=== PATIENT | male | born 1965 | race Caucasian/White ===

== ENCOUNTER → 2018-10-02 10:21 | Outpatient (CLI) | payer MEDICAID, SELFPAY ==
--- NOTE | 2018-10-02 10:26 | XR_ITS ---
EXAM: XR lumbar spine 2-3V HISTORY: ITS.REASON: pain ORDERING PHYSICIAN: Glendy Flynn PATIENT AGE: 53 years COMPARISON: None FINDINGS: Mild dextroscoliosis. There is mild multilevel degenerative disc disease from L1 to S1 with some sparing of the L2-L3 disc space. No fracture or dislocation. No lytic or blastic change. Mild facet arthritic changes with hypertrophy at L5-S1. IMPRESSION: Lumbar spondylosis with degenerative disc disease and facet arthritic change
--- NOTE | 2018-10-02 10:26 | XR_ITS ---
XR hip RT 2-3V w/pelvis HISTORY: ] ITS.REASON: pain ORDERING PHYSICIAN: Glendy Flynn PATIENT AGE: 53 years COMPARISON: None FINDINGS: No fracture or dislocation is evident. There are mild osteoarthritic changes of the right hip with osteophyte formation along the inferior aspect of the acetabulum. IMPRESSION: Mild osteoarthritis of the right hip
== END ==
PROVIDERS: PCP Emergency Medicine; Visit Provider Nurse Practitioner Family
DX: M25.551 Pain in right hip (principal); M54.9 Dorsalgia, unspecified
CPT/HCPCS: 72100; 73502

== ENCOUNTER 2024-08-04 03:00 | Inpatient (IN) | payer OTHER, SELFPAY ==
[2024-08-04] VITALS (27 sets, daily range): BP systolic 100–178; BP diastolic 62–103; PULSE 66–105; RESP 12–20; TEMP 36.6–37.1; O2SAT 96–100; BMI 26.6
--- NOTE | 2024-08-04 03:07 | ECG_ITS ---
APPROVED REPORT Exam: Resting ECG HR:86 bpm ECG Measurements Heart Rate 86 AXES NV 154 P 57 QRSd 94 QRS 44 QT 353 T 69 QTc 396 Conclusion SINUS RHYTHM MARKED ST ELEVATION, CONSIDER INFERIOR INJURY [MARKED ST ELEVATION W/O NORMALLY INFLECTED T-WAVE IN II/aVF] ACUTE IA Electronically signed by : DANIEL VELOZ, 08/04/2024 07:28:09
--- NOTE | 2024-08-04 03:11 | PC.NURSE ---
Stemi alert called
--- NOTE | 2024-08-04 03:16 | XR_ITS ---
PROCEDURE INFORMATION: Exam: XR Chest Exam date and time: 08/04/2024 3:21 AM Age: 59 years old Clinical indication: Pain; Chest pressure; Additional info: Cp TECHNIQUE: Imaging protocol: Radiologic exam of the chest. Views: 1 view. COMPARISON: No relevant prior studies available. FINDINGS: Lungs: Unremarkable. No consolidation. There is no focal mass. Pleural spaces: Unremarkable. No pleural effusion. No pneumothorax. Heart/Mediastinum: Unremarkable. No cardiomegaly. Bones/joints: Unremarkable. There is no acute fracture present. IMPRESSION: No evidence for acute cardiac or pulmonary process.
[2024-08-04] MEDS: TICAGRELOR 90MG TABLET 180 MG PO (03:18)
[2024-08-04] MEDS: HEPARIN SODIUM 5,000 UNIT/ML VIAL 7700 UNIT IV (03:18)
--- NOTE | 2024-08-04 03:21 | ED_ITS ---
Discharge Plan Disposition Patient Disposition: Admitted Condition: Serious Clinical Impressions Clinical Impression: ST elevation (STEMI) myocardial infarction Discharge ED Provider: Hemant Ross Adult HPI General Chief complaint: Chest Pain Stated complaint: heart racing, dizziness, sweating,chest tightness Time Seen by Provider: 08/04/24 03:10 Mode of Arrival: Ambulatory Source of Information: Patient Limitations: No Limitations Description of Symptoms (Recalled from ER Triage Doc. by RN): patient states he has chest pain/tightness/pressure starting around 1am. Pain is resolved now, however he states he still has some tightness History of Present Illness HPI narrative: 59-year-old male with history of hypertension hyperlipidemia presents with chest pain. He reports that he woke up with chest pain at around 1 AM. It has since eased off and he currently ports he has no chest pain. He reports that he has been feeling well recently, denies any shortness of breath, headache abdominal pain or other symptoms. Related Data Home Medications ?Medication ?Instructions ?Recorded ?Confirmed cetirizine 10 mg tablet 10 mg PO DAILY 06/26/19 06/26/19 Previous Rx's ?Medication ?Instructions ?Recorded fluticasone propionate 50 1 spray intranasal DAILY #9.9 mL 07/01/20 mcg/actuation nasal spray,suspension (Flonase Allergy Relief) prednisone 20 mg tablet 20 mg PO BID 5 days #10 tabs 07/01/20 amlodipine 5 mg tablet 5 mg PO DAILY #90 tabs 07/31/20 atorvastatin 10 mg tablet (Lipitor) 10 mg PO HS #90 tabs 02/24/21 lisinopril 20 mg tablet See Rx Instructions .Route 01/29/23 .COMPLEX #90 tabs Allergies Allergy/AdvReac Type Severity Reaction Status Date / Time No Known Allergies Allergy Verified 06/26/19 08:52 [facility] Disclaimer: The information contained in this section may have been updated after the patient was seen, as this information can be updated by other users. Social History Smoking Status: Never smoker alcohol intake: never substance use type: denies use current occupational status: employed Travel in the last 8 weeks: None household members: family housing: house ROS Obtained: Yes All systems reviewed & no additional complaints except as documented Physical Exam General General appearance: alert and in no apparent distress Head Head exam: atraumatic and normocephalic Eye Eye exam: Present normal appearance, PERRL and EOMI ENT ENT exam: Present normal oropharynx and normal external ear exam Neck Neck exam: Present normal inspection and full ROM Chest Chest inspection: Present normal inspection and symmetric chest wall rise; Absent tenderness Respiratory Respiratory exam: Present normal lung sounds bilaterally; Absent respiratory distress Cardiovascular Cardiovascular exam: Present normal rhythm and tachycardia Abdominal Exam Abdominal exam: Present soft; Absent distention, tenderness or guarding Extremities Exam Extremities exam: Present normal inspection; Absent edema or joint swelling Back Exam Back exam: Present normal inspection; Absent tenderness Neurological Exam Neurological exam: Present alert and oriented X3; Absent motor sensory deficit Psychiatric Psychiatric exam: Present normal affect and normal mood Skin Skin exam: Present warm, dry and normal color Lymphatic Lymphatic Findings: no adenopathy Medical Decision Making Medical Records Medical records reviewed: Yes I reviewed the patient's medical records. Screening: Per USPSTF and CDC recommendations, given the prevalence of disease in our region, it is our hospital?s policy to screen for HIV and viral Hepatitis for all patients aged 18 and over and those with ongoing risk factors. Jamin Inquiry Pt receiving controlled substance: No Jamin was queried for this patient: No Vital Signs: 08/04/24 03:11 08/04/24 03:18 08/04/24 03:30 Temperature 97.9 F Temperature Source Oral Pulse Rate 91 H 99 H Pulse Rate [Right Radial] 91 H Respiratory Rate 18 15 Blood Pressure 146/81 H Blood Pressure [Right Arm] 178/103 H Blood Pressure Mean [Right Arm] 128 Blood Pressure Source [Right Arm] Automatic Cuff Blood Pressure Position [Right Arm] Sitting 02 Sat by Pulse Oximetry 99 99 Oxygen Delivery Method Room Air Lab Data Lab results reviewed: Yes I reviewed the patient's lab results. Lab Results 08/04/24 03:18: WBC 7.8, RBC 5.75, Hgb 17.3, Hct 51.5, MCV 89.7, MCH 30.1, MCHC 33.6, RDW 14.6, Plt Count 259, MPV 8.3, Neut % (Auto) 65.2, Lymph % (Auto) 22.2, [place] % (Auto) 8.3, Eos % (Auto) 3.0, Baso % (Auto) 1.4, Neut # (Auto) 5.1, Lymph # (Auto) 1.7, [place] # (Auto) 0.7, Eos # (Auto) 0.2, Baso # (Auto) 0.1, PT 10.4, INR 0.92, APTT 24.2, Sodium 138, Potassium 3.3 L, Chloride 102, Carbon Dioxide 30, Anion Gap 9.3, BUN 15, Creatinine 1.10, Estimated Creat Clear 79, Estimated GFR 69, Est GFR ( Amer) 83, Glucose 132 H, Calcium 9.8, Total Bilirubin 0.8, AST 46, ALT 26, Alkaline Phosphatase 83, Troponin I 0.32 H, Total Protein 8.8 H, Albumin 4.9, Globulin 3.9 H, Albumin/Globulin Ratio 1.3 08/04/24 03:18 08/04/24 03:18 Orders (Tests/Meds): ED MEDICATIONS Generic Name Dose Route Start Last Admin Trade Name Freq PRN Reason Stop Dose Admin Acetaminophen 650 mg 08/04/24 03:25 Acetaminophen 325mg Tab PO 09/03/24 03:24 Q4HP PRN Fever or Mild Pain (1-3) Aspirin 325 mg 08/04/24 03:16 08/04/24 03:27 Aspirin 325mg Tablet PO 08/04/24 03:17 Not Given ONCE ONE Diphenhydramine HCl 50 mg 08/04/24 03:50 Diphenhydramine 50mg/Ml Vial IV 08/04/24 03:51 ONCE ONE Fentanyl Citrate 50 mcg 08/04/24 03:50 Fentanyl 100mcg/2ml Vial IV 08/04/24 15:50 Q3MINP PRN Moderate to Severe Pain (4-10) Fentanyl Citrate 25 mcg 08/04/24 03:50 Fentanyl 250mcg/5ml Vial IV 08/04/24 15:50 Q3MINP PRN Moderate to Severe Pain (4-10) Fentanyl Citrate 50 mcg 08/04/24 03:50 Fentanyl 250mcg/5ml Vial IV 08/04/24 15:50 Q3MINP PRN Moderate to Severe Pain (4-10) Fentanyl Citrate 25 mcg 08/04/24 03:50 Fentanyl 100mcg/2ml Vial IV 08/04/24 15:50 Q3MINP PRN Moderate to Severe Pain (4-10) Flumazenil 0.2 mg 08/04/24 03:50 Flumazenil 0.1mg/Ml 5ml Vial IV 08/04/24 15:50 NEEDED PRN Sedation Heparin Sodium (Porcine) 10,000 unit 08/04/24 03:50 Heparin 1,000 Units/Ml 10ml Vial (Sleep Manager) IV 08/04/24 07:50 NEEDED PRN Emergency Box Consulting Senior Practice Director Heparin Sodium/Sodium Chloride 3,000 unit 08/04/24 03:50 Heparin 1,000 Units/500ml Ns (Sleep Manager) IV 08/04/24 03:51 ONCE ONE Hydralazine HCl 20 mg 08/04/24 03:50 Hydralazine 20mg/Ml Vial IV 08/04/24 07:50 ONCE PRN sbp>160 Adenosine 180 mg/ Sodium 90 mls @ 416.399 mls/hr 08/04/24 03:50 Chloride IV 08/04/24 07:50 ONCE PRN fractional flow reserve 180 MCG/KG/MIN Adenosine 90 mg/ Sodium 90 mls @ 832.799 mls/hr 08/04/24 03:50 Chloride IV 08/04/24 07:50 ONCE PRN fractional flow reserve 180 MCG/KG/MIN Sodium Chloride 1,000 mls @ 25 mls/hr 08/04/24 04:00 Sod Chloride 0.9% 500ml Bag IV 08/05/24 03:50 .Q25H HAZEL Labetalol HCl 20 mg 08/04/24 03:50 Labetalol 20mg/4ml Syringe IV 08/04/24 07:50 ONCE PRN sbp>160 Lidocaine HCl 20 ml 08/04/24 03:50 Lidocaine 1% 10ml Mdv IJ 08/04/24 03:51 ONCE ONE Lidocaine HCl 20 ml 08/04/24 03:50 Lidocaine 1% 5ml Pf Vial IJ 08/04/24 03:51 ONCE ONE Midazolam HCl 1 mg 08/04/24 03:50 Midazolam 2mg/2ml Vial IV 08/04/24 15:50 Q3MINP PRN Sedation Midazolam HCl 1 mg 08/04/24 03:50 Midazolam Hcl 1mg/1ml 5ml Vial IV 08/04/24 15:50 Q3MINP PRN Sedation Naloxone HCl 0.4 mg 08/04/24 03:50 Naloxone 0.4mg/Ml Vial IV 08/04/24 15:50 Q5MINP PRN Decreased Respirations Nitroglycerin 800 mcg 08/04/24 03:50 Nitroglycerin 800mcg/8ml Syr (Sleep Manager) IA 08/04/24 07:50 NEEDED PRN Emergency [employer] Consult[employer] Senior Practice Director Ondansetron HCl 4 mg 08/04/24 03:25 Ondansetron 4mg/2ml Vial IV 09/03/24 03:24 Q8HP PRN Nausea Protamine Sulfate 50 mg 08/04/24 03:50 Protamine Sulfate 50mg/5ml Vial (Sleep Manager) IV 08/04/24 07:50 ONCE PRN act>200 Verapamil HCl 2.5 mg 08/04/24 03:50 Verapamil 2.5mg/Ml 2ml Vial IV 08/04/24 03:51 ONCE ONE Discontinued Medications Generic Name Dose Route Start Last Admin Trade Name Freq PRN Reason Stop Dose Admin Aspirin 324 mg 08/04/24 03:10 08/04/24 03:29 Aspirin 81mg Chewable Tablet PO 08/04/24 03:11 324 mg ONCE ONE Administration Heparin Sodium (Porcine) 7,700 unit 08/04/24 03:15 08/04/24 03:18 Heparin Sodium 5,000 Unit/Ml Vial 100 unit/kg (7700 unit) 08/04/24 03:16 7,700 unit IV Administration ONCE ONE Ticagrelor 180 mg 08/04/24 03:15 08/04/24 03:18 Ticagrelor 90mg Tablet PO 08/04/24 03:16 180 mg ONCE ONE Administration ORDERS Category Date Time Status CXR --portable [XR chest portable] Stat Exams 08/04/24 03:16 Completed BMP [Basic Metabolic Panel] AMLAB Lab 08/05/24 06:00 Ordered Basic Metabolic Panel Stat Lab 08/04/24 03:50 Ordered CBC [Complete Blood Count Auto Diff] AMLAB Lab 08/05/24 06:00 Ordered CBC w/Auto Diff [Complete Blood Count Auto Diff] Stat Lab 08/04/24 03:18 Completed CMP [Comprehensive Metabolic Panel] Stat Lab 08/04/24 03:18 Completed Hemoglobin A1C AML[facility] Lab 08/05/24 06:00 Ordered INR [Prothrombin Time INR] Stat Lab 08/04/24 03:18 Completed Lipid Panel AML[facility] Lab 08/05/24 06:00 Ordered PTT [Activated Partial Thrombo Time] Stat Lab 08/04/24 03:18 Completed TSH [Thyroid Stimulating Hormone] AMLAB Lab 08/05/24 06:00 Ordered Trop I [Troponin I] Stat Lab 08/04/24 03:18 Completed Troponin I Q3H Lab 08/04/24 06:15 Ordered Troponin I Q3H Lab 08/04/24 09:15 Ordered ECG Data Tracing #1: I reviewed this ECG and interpreted as documented below: Inferior STEMI: ST elevation in lead II,III and aVF with reciprocal depressions in the precordial leads. ECG initial impression date: 08/04/24 ECG initial impression time: 03:07 HEART Score History (anamnesis): Highly suspicious ECG: Significant ST-deviation Age: 45-65 years Risk factors: 1-2 risk factors Troponin: > 3x normal limit HEART Score: 8 Medical Decision Narrative: 59-year-old male with history of hypertension hyperlipidemia presents after waking up with chest pain approximately 2 hours prior to arrival. Reports that he is currently chest pain-free.. History was obtained via interactive discussion with patient. On arrival, patient is afebrile, mildly hypertensive, mildly tachycardic, otherwise well-appearing, moving all extremities spontaneously. Full physical exam performed and significant for no significant physical exam abnormalities. Differential includes but is not limited to ACS, PE, aortic pathology, musculoskeletal chest pain. EKG on arrival shows inferior STEMI with ST elevations in 2 3 aVF and reciprocal depressions. Patient was given 325 aspirin, cardiology was called and Sleep Manager was activated. He was loaded with 180 mg of Brilinta as well as 100 units/kg of heparin. Labs and chest x-ray were obtained. Patient sent emergently to the Sleep Manager. Laboratory workup independently interpreted by me and significant for mild hypokalemia, troponin elevated at 0.32. Imaging independently interpreted by me and significant for clear lungs bilaterally without focal opacity. See radiology read for full review of final results. Procedures Risk/Benefits of Procedure(s) Were Explained: Yes Critical Care Critical Care Time Critical Care Time: Yes Attestation: On 08/04/24, the high probability of a clinically significant, sudden or life threatening deterioration of the following system(s) cardiac required my full and direct attention, intervention and personal management. The time I documented below is in addition to time spent performing reported procedures but includes the following listed in this critical care notation. Total Time Total Critical Care Time: 40
[2024-08-04 03:25] LABS: Basophils # 0.1 K/mm3 (0-0.2); Basophils % 1.4 % (0.1-2.0); Eosinophils # 0.2 K/mm3 (0.0-0.4); Hematocrit 51.5 % (42.0-52.0); Hemoglobin 17.3 g/dL (14.1-18.0); Lymphocytes # 1.7 K/mm3 (0.7-4.5); Lymphocytes % 22.2 % (10-50); Mean Corpuscular HGB Conc 33.6 g/dL (31.8-35.4); Mean Corpuscular Hemoglobin 30.1 pg (27.0-31.2); Mean Corpuscular Volume 89.7 fl (80-94); Mean Platelet Volume 8.3 fl (7.4-10.4); Monocytes # 0.7 K/mm3 (0.1-1.0); Monocytes % 8.3 % (1.7-9.3); Neutrophils # 5.1 K/mm3 (1.8-7.8); Neutrophils % 65.2 % (37.0-80.0); Platelet Count 259 K/mm3 (142-424); Red Blood Count 5.75 M/mm3 (4.60-6.20); Red Cell Distribution Width 14.6 % (11.5-17.5); White Blood Count 7.8 K/mm3 (4.8-10.8)
[2024-08-04] MEDS: ASPIRIN 81MG CHEWABLE TABLET 324 MG PO (03:29)
--- NOTE | 2024-08-04 03:31 | P.HP_ITS ---
History of Present Illness *Admission Date: 08/04/24 *Reason for visit:: STEMI *History of present illness: Liu Barr is a 59-year-old male with a medical history significant for hypertension, hyperlipidemia who presented to the ED after waking up shortly after midnight with diaphoresis and generally not feeling well. He decided to come to the ED and was found to have a inferior STEMI on EKG. Dr. Alfaro with cardiology was immediately contacted and Veterinary Parasitologist was activated. Patient had no chest pain on arrival and comfortable. Meds Home Medications and Allergies Home Medications ?Medication ?Instructions ?Recorded ?Confirmed ?Type amlodipine 5 mg tablet 5 mg PO DAILY 08/04/24 08/04/24 History atorvastatin 10 mg tablet 10 mg PO HS 08/04/24 08/04/24 History lisinopril 20 mg tablet 20 mg PO DAILY 08/04/24 08/04/24 History New Prescriptions to Start Prescriptions: Allergies Allergy/AdvReac Type Severity Reaction Status Date / Time No Known Allergies Allergy Verified 06/26/19 08:52 Exam Data for Last 24 hours Vital signs and Labs for Last 24 Hours: Temp Pulse Resp BP Pulse Ox O2 Del Method 97.9 F 91 H 18 178/103 H 99 Room Air 08/04/24 03:11 08/04/24 03:18 08/04/24 03:11 08/04/24 03:11 08/04/24 03:11 08/04/24 03:11 Laboratory Results - last 24 hr 08/04/24 03:18: WBC 7.8, RBC 5.75, Hgb 17.3, Hct 51.5, MCV 89.7, MCH 30.1, MCHC 33.6, RDW 14.6, Plt Count 259, MPV 8.3, Neut % (Auto) 65.2, Lymph % (Auto) 22.2, [place] % (Auto) 8.3, Eos % (Auto) 3.0, Baso % (Auto) 1.4, Neut # (Auto) 5.1, Lymph # (Auto) 1.7, [place] # (Auto) 0.7, Eos # (Auto) 0.2, Baso # (Auto) 0.1 I & O for Last 24 hours: Intake & Output 08/01/24 08/02/24 08/03/24 08/04/24 23:59 23:59 23:59 23:59 Weight 77.111 kg Constitutional Constitutional: no acute distress *Routine HEENT Exam Head: Present normocephalic Eye: Present EOMI and PERRL ENT: Present mucous membranes moist *Routine Neck Exam Neck: Present supple; Absent lymphadenopathy *Routine Respiratory Exam Respiratory: Present CTA bilaterally *Routine Cardiovascular Exam Cardiovascular: Present RRR *Routine Abdominal Exam Abdominal: Present soft and normoactive bowel sounds; Absent tenderness *Routine Rectal Exam Rectal:: deferred *Routine Genitalia Exam Genitalia:: deferred *Routine Extremities Exam Extremities: Absent cyanosis, clubbing or edema *Routine Skin Exam Skin: Present warm; Absent rash *Routine Neurological Exam Neurological: Present alert and oriented X3 Assessment and Plan *Assessment and plan (1) ST elevation (STEMI) myocardial infarction: Status: Acute Category: Medical Code(s): I21.3 - ST elevation (STEMI) myocardial infarction of unspecified site (2) CAD (coronary artery disease): Status: Acute Category: Medical Code(s): I25.10 - Atherosclerotic heart disease of [place] coronary artery without angina pectoris (3) Hypertension: Status: Chronic Qualifiers: Hypertension type: essential hypertension Qualified Code(s): I10 - Essential (primary) hypertension Category: Medical Code(s): I10 - Essential (primary) hypertension Plan Liu Barr is a 59-year-old male with a medical history significant for hypertension, hyperlipidemia who presented to the ED after waking up shortly after midnight with diaphoresis and generally not feeling well. He decided to come to the ED and was found to have a inferior STEMI on EKG. Dr. Alfaro with cardiology was immediately contacted and Veterinary Parasitologist was activated. He received a stent in first OM artery. #STEMI #CAD s/p MELLY 08/04/2024 #Hypertension ? No prior cardiac history including MIs, stents. ? Does have risk factors of hypertension, hyperlipidemia. No smoking history. ? Cardiology consulted, appreciate recommendations and efforts. ? Aspirin 81 mg, Brilinta 90 mg twice daily, atorvastatin 40 mg. ? Resumed home lisinopril 20 mg today. Plan to start carvedilol tomorrow as BP tolerates. ? Follow-up morning A1c, lipid panel, TSH. ? Continuous telemetry for the next 48 hours. ? Follow-up ECHO. DVT prophylaxis: Lovenox CODE STATUS: Full code
[2024-08-04 03:33] LABS: Alanine Aminotransferase 26 U/L (12-78); Albumin Level 4.9 g/dl (3.5-5.0); Albumin/Globulin Ratio 1.3 (1.1-1.8); Alkaline Phosphatase 83 U/L (38-126); Anion Gap 9.3 mEq/L (5-15); Aspartate Amino Transferase 46 U/L (17-59); Bilirubin,Total 0.8 mg/dl (0.2-1.3); Blood Urea Nitrogen 15 mg/dl (9-20); Calcium 9.8 mg/dl (8.4-10.2); Carbon Dioxide 30 mmol/L (22.0-30.0); Chloride 102 mmol/L (98-107); Creatinine Clearance Estimated 79 mL/min (50-200); Estimated Glomerular Filt Rate 69 ml/min (>60); GFR (African American) 83 ML/MIN (>60); Globulin 3.9 g/dL (1.3-3.2); Glucose 132 mg/dl (74-100); Potassium 3.3 mmoL/L (3.5-5.1); Sodium 138 mmol/L (136-145); Total Protein,Serum 8.8 g/dl (6.3-8.2)
[2024-08-04 03:35] LABS: Activated Partial Thrombo Time 24.2 seconds (22.8-30.6); INR 0.92 (0.9-1.1); Prothrombin Time 10.4 seconds (10.1-12.5)
--- NOTE | 2024-08-04 03:44 | PC.NURSE ---
Patient resting in bed with family at bedside. States he is not having any pain at this time. Awaiting arrival of powerhouse laborer.
--- NOTE | 2024-08-04 03:45 | IR_ITS ---
APPROVED REPORT Patient Location: [facility] Rep: DAVE Dominguez RT (R) PROCEDURES Left heart catheterization Left ventriculogram Selective coronary angiogram Attempted mechanical thrombectomy to the circumflex artery Drug-eluting stent deployment to the dominant circumflex arteries large proximal to mid first obtuse marginal artery INDICATION Acute inferior and lateral ST elevation myocardial infarction, Coronary artery disease Informed consent was obtained prior to the procedure. COMPLICATIONS None Estimated Blood Loss: Less than 10 mls TECHNIQUE One percent lidocaine used to anesthetize the right anterior aspect of the wrist. The right radial artery was accessed via the Seldinger technique. A 6 Polish sheath was placed in the right radial artery. 2.5 mg of Verapamil, 800 mcg of nitroglycerin, 1mg Lidocaine were given through the arterial sheath. The papa catheter was also used to perform selective coronary angiogram. At the end of the diagnostic angiogram the guide catheter was placed in the left main artery followed by Choice PT extra-support wire down the circumflex arteries first obtuse marginal artery. Penumbra mechanical catheter was advanced however could not make it into the first obtuse marginal artery. A 2.75 x 38 mm [place] frontier stent was then attempted to be delivered in the first obtuse marginal artery however this could not be performed. A guide liner was then advanced and a 3 mm x 12 mm noncompliant balloon was deployed at 12 dick in the proximal and midportion of predilate the stenosis. Following this a 2.75 x 38 mm [place] frontier stent was then deployed in the proximal to mid first obtuse marginal artery at 18 dick reducing the critical stenosis to 0%. NAIBL I flow was present at the beginning of the procedure with NABIL-3 flow at the end the procedure. Following this left heart catheterization left ventriculogram was performed. At the end the procedure the apparatus was removed the sheath was removed and hemostasis was achieved using TR banding patient was transferred to the postop putting in stable condition ANGIOGRAPHIC RESULTS The left main artery Has a distal eccentric 10 to 20% stenosis The left anterior descending artery Has proximal 10 to 20% stenosis with mid vessel calcified 30% stenosis. A large diagonal artery has a proximal calcified 40 to 50% stenosis The circumflex artery Is large and dominant and has proximal calcified 10 to 20% stenosis. The first obtuse marginal artery was initially thrombosed and subtotally occluded. Following stenting the obtuse marginal artery is widely patent was a large vessel and gave rise to many distal marginal branches the second obtuse marginal artery is small and has mid vessel tandem 50 to 60% eccentric stenoses The right coronary artery Is nondominant yet still gives moderate amount of distribution to the left ventricle. There is a mid vessel concentric 90% stenosis with distal 70 and 80% stenoses. A small posterior descending artery has proximal 60% stenosis and mid vessel 70 to 80% stenosis The MCBRIDE ventriculogram reveals Slight LV dilatation with slightly reduced ejection fraction at 50 to 55% The left ventricular end-diastolic pressure 20 mmHg IMPRESSION Coronary disease as described above Successful stenting of the large proximal to mid first obtuse marginal artery off the dominant circumflex artery critical disease reduced to 0% with 1 drug-eluting stent Persistent mild disease in the proximal and mid LAD with moderate disease in the first diagonal artery Persistent severe stenosis throughout the mid right coronary artery and small posterior descending artery as described above Slightly reduced ejection fraction of 50 to 55% with small regional wall motion abnormality Elevated LVEDP PLAN 1. Brilinta 90 twice daily plus aspirin 81 mg daily 2. LDL less than 55 to be achieved with high intensity statin 3. Start COLLEEN inhibitor's and carvedilol as hemodynamically tolerates and uptitrate 4. Formal echocardiogram in the morning 5. Avoidance of tobacco products 6. Supportive care with continuous telemetry monitoring for at least the next 48 hours 7. Medical management for the right coronary artery Electronically signed by : Vlad Alfaro MD 08/04/2024 04:35:02
[2024-08-04 03:59] LABS: Troponin I 0.32 ng/ml (0.00-0.034)
--- NOTE | 2024-08-04 03:59 | PC.NURSE ---
reported critical troponin of 0.32 to Ziyad Ross MD
[2024-08-04 04:34] LABS: Anion Gap 10.3 mEq/L (5-15); Blood Urea Nitrogen 15 mg/dl (9-20); Calcium 9.7 mg/dl (8.4-10.2); Carbon Dioxide 28 mmol/L (22.0-30.0); Chloride 103 mmol/L (98-107); Creatinine Clearance Estimated 79 mL/min (50-200); Estimated Glomerular Filt Rate 69 ml/min (>60); GFR (African American) 83 ML/MIN (>60); Glucose 132 mg/dl (74-100); Potassium 3.3 mmoL/L (3.5-5.1); Sodium 138 mmol/L (136-145)
[2024-08-04] MEDS: FENTANYL 100MCG/2ML VIAL 50 MCG IV (04:39)
[2024-08-04] MEDS: MIDAZOLAM HCL 1MG/1ML 5ML VIAL 1 MG IV (04:39)
[2024-08-04] MEDS: LIDOCAINE 1% 10ML MDV 20 ML IJ (04:39)
[2024-08-04] MEDS: 0.9 % SODIUM CHLORIDE 500 ML 25 ML IV (04:40)
[2024-08-04] MEDS: HEPARIN 1,000 UNITS/ML 10ML VIAL (CATH LAB) 10000 UNIT IV (04:40)
[2024-08-04] MEDS: diphenhydrAMINE 50MG/ML VIAL 50 MG IV (04:41)
[2024-08-04] MEDS: HEPARIN 1,000 UNITS/500ML NS (CATH LAB) 3000 UNIT IV (04:41)
[2024-08-04] MEDS: VERAPAMIL 2.5MG/ML 2ML VIAL 2.5 MG IV (04:42)
[2024-08-04] MEDS: IOPAMIDOL-370 (76%);100ML BOTTLE 110 ML IV (04:46)
[2024-08-04 04:49] LABS: CATHL Activated Clotting Time 250 SEC (74-125)
--- NOTE | 2024-08-04 07:39 | HMH.PHAINT1 ---
Pharmacy Intervention Comments: HOME MEDICATION LIST VERIFIED USING LIST FROM OUTPATIENT PHARMACY AND PT INTERVIEW
[2024-08-04] MEDS: ASPIRIN EC 81MG TABLET 81 MG PO (09:14)
[2024-08-04] MEDS: TICAGRELOR 90MG TABLET 90 MG PO ×2 (09:14→20:16)
--- NOTE | 2024-08-04 13:07 | PC.WOUNDNOTE ---
Addendum entered by Renetta Benitez RN 08/04/24 13:09: physician notified during care rounds. speech eval ordered. Original Note: during morning assessment pt stated he would need his pills broke in half due to having issues with swallowing. pt stated he also had issues with swallowing food and would occasionally choke during meals.
--- NOTE | 2024-08-04 14:31 | PC.NURSE ---
1400: Pt. moved to room 212.
--- NOTE | 2024-08-04 14:50 | HMH.SLDYSPHA ---
Speech & Language Evaluation Speech/Language Dysphagia Evaluation Start: 08/04/24 14:36 Freq: ONCE Status: Active Protocol: Document 08/04/24 14:36 JENARO (Rec: 08/04/24 14:50 JENARO [id number]) Co-signed By ST Joe Dysphagia Assess/Goals/Plan Assessment Date of Evaluation: 08/04/24 Evaluation Type Initial Certification Assessment/Problems dysphagia per MD order Does Patient Qualify for Service No Qualify/Failure Comment Based on clinical observations throughout bedside clinical swallow evaluation and pt interview, further skilled speech therapy services are not warranted at this time d/t no overt s/sx of aspiration. Pt would benefit for GI referral to address globus sensation. Recommendations PHYSICIAN CERTIFICATION: The specified therapy services are required, authorized, and reviewed every 30 days. Diet Recommendations Normal Liquid Type Recommendations Normal/Thin SL Swallow Guidelines Alt bite w/sip thru meal, Standard Aspiration Prec.,Eat at slow rate,Oral Care Education,Reflux precautions Dysphagia Swallow Precautions/Strategies Sitting Upright (90 deg),Small Bites and Sips,Alternate Liquids/Solids Additional Consults Recommended Other Comment Outpatient GI consult Plan Pt/Guardian verbally ack understanding Yes of dx/prognosis/goals G -code Required No Education Instructions provided CAFETERIA CLERK discussed clinical observations made throughout bedside CSE, diet recommendations, and aspiration precautions/ compensatory strategies with pt, nursing, and CM, all of which expressed understanding. Pt/Caregiver able to recall information Able to recall/restate Reinforcement needed No Speech & Language HPI History Present Illness Description of Patient Problem CAFETERIA CLERK pulled the following information from pt's ER documentation: 59-year-old male with history of hypertension hyperlipidemia presents after waking up with chest pain approximately 2 hours prior to arrival. Reports that he is currently chest pain-free.. History was obtained via interactive discussion with patient. On arrival, patient is afebrile, mildly hypertensive, mildly tachycardic, otherwise well- appearing, moving all extremities spontaneously. Full physical exam performed and significant for no significant physical exam abnormalities. Differential includes but is not limited to ACS, PE, aortic pathology, musculoskeletal chest pain. EKG on arrival shows inferior STEMI with ST elevations in 2 3 aVF and reciprocal depressions. Patient was given 325 aspirin, cardiology was called and Safety Equipment Tester was activated. He was loaded with 180 mg of Brilinta as well as 100 units/ kg of heparin. Labs and chest x-ray were obtained. Patient sent emergently to the Safety Equipment Tester. Laboratory workup independently interpreted by me and significant for mild hypokalemia, troponin elevated at 0.32. Imaging independently interpreted by me and significant for clear lungs bilaterally without focal opacity. See radiology read for full review of final results. Pt/Caregiver Concerns Globus sensation since grade school Rehab Services Assessed Speech therapy Is this evaluation r/t stroke? No Language Primary Language Citizen Of [place] General Information General Current Food Consistancy Regular,Thin Liquids Dentition Good Dentition Oxygen Status Room Air Facial Symmetry Symmetrical Patient Orientation Person,Place,Time,Situation Ability to Follow Directions Excellent Communication Ability No Impairment Dysphagia:Food Presentation Evaluation Food Type Pureed,Mechanical Soft,Regular ,Liquid,Pudding Dysphagia Evaluation Summary A bedside CSE was administered on this date with pt sitting upright, on room air, and with good dentition. During pt interview, pt stated that he avoided certain foods, such as fibrous meats and breads d/t globus sensation. He stated that he has had this problem since he was in grade school. Pt also states that he takes small pills and sometimes crushes/cuts them to help them go down better. Bolus consistencies administered on this date include thin liquid (water) via cup and straw, pudding, puree (applesauce), mechanical soft (Nutrigrain bar), and regular (nathen cracker). All presentations were given x2 to assess for fatigue and consistency. Pt did not demonstrated any overt s/sx of aspiration on any consistencies trialed. No oral residue was observed on any consistency trialed, and mastication and manipulation of the bolus were adequate and timely during mechanical soft and regular food trials. CAFETERIA CLERK recommends thin liquid/regular foods diet, with small or crushed pills (pt preference). Aspiration precautions recommended include sitting upright while eating, sitting upright 30-60 minutes after eating, alternating bites and sips, small bites and sips, eating at a slow rate, and extra sauces and gravy. Pt would benefit from a GI consult d/t globus sensation. Stroke Dysphagia Assessment PHYSICIAN CERTIFICATION: I certify the specified therapy services for Liu Talamantes II are required, authorized, and reviewed every 30 days.
--- NOTE | 2024-08-04 16:59 | EXP.PN ---
Subjective *Date: 08/04/24 *Time: 16:59 Interval history: Patient was lying comfortably in bed this morning after LHC. No chest pain, shortness of breath. No signs of bleeding. Exam Data for Last 24 hours Vital signs and Labs for Last 24 Hours: Temp Pulse Resp BP Pulse Ox O2 Del Method 98.3 F 95 H 18 131/82 99 Room Air 08/04/24 16:00 08/04/24 16:00 08/04/24 16:00 08/04/24 16:00 08/04/24 16:00 08/04/24 16:48 Laboratory Results - last 24 hr 08/04/24 03:18: WBC 7.8, RBC 5.75, Hgb 17.3, Hct 51.5, MCV 89.7, MCH 30.1, MCHC 33.6, RDW 14.6, Plt Count 259, MPV 8.3, Neut % (Auto) 65.2, Lymph % (Auto) 22.2, [place] % (Auto) 8.3, Eos % (Auto) 3.0, Baso % (Auto) 1.4, Neut # (Auto) 5.1, Lymph # (Auto) 1.7, [place] # (Auto) 0.7, Eos # (Auto) 0.2, Baso # (Auto) 0.1, PT 10.4, INR 0.92, APTT 24.2, Sodium 138 08/04/24 03:18: Sodium 138, Potassium 3.3 L 08/04/24 03:18: Potassium 3.3 L, Chloride 102 08/04/24 03:18: Chloride 103, Carbon Dioxide 30 08/04/24 03:18: Carbon Dioxide 28, Anion Gap 9.3 08/04/24 03:18: Anion Gap 10.3, BUN 15 08/04/24 03:18: BUN 15, Creatinine 1.10 08/04/24 03:18: Creatinine 1.10, Estimated Creat Clear 79 08/04/24 03:18: Estimated Creat Clear 79, Estimated GFR 69 08/04/24 03:18: Estimated GFR 69, Est GFR ( Amer) 83 08/04/24 03:18: Est GFR ( Amer) 83, Glucose 132 H 08/04/24 03:18: Glucose 132 H, Calcium 9.8 08/04/24 03:18: Calcium 9.7, Total Bilirubin 0.8, AST 46, ALT 26, Alkaline Phosphatase 83, Troponin I 0.32 H, Total Protein 8.8 H, Albumin 4.9, Globulin 3.9 H, Albumin/Globulin Ratio 1.3 08/04/24 04:08: Activated Clotting Time 250 H* I & O for Last 24 hours: Intake & Output 08/01/24 08/02/24 08/03/24 08/04/24 23:59 23:59 23:59 23:59 Intake Total 720 / 720 Output Total 450 / 450 Balance 270 / 270 Weight 77.111 kg Constitutional Constitutional: no acute distress *Routine HEENT Exam Head: Present normocephalic Eye: Present EOMI and PERRL ENT: Present mucous membranes moist *Routine Neck Exam Neck: Present supple; Absent lymphadenopathy *Routine Respiratory Exam Respiratory: Present CTA bilaterally *Routine Cardiovascular Exam Cardiovascular: Present RRR *Routine Abdominal Exam Abdominal: Present soft and normoactive bowel sounds; Absent tenderness *Routine Extremities Exam Extremities: Absent cyanosis, clubbing or edema *Routine Skin Exam Skin: Present warm; Absent rash *Routine Neurological Exam Neurological: Present alert and oriented X3 Assessment and Plan *Assessment and plan (1) ST elevation (STEMI) myocardial infarction: Status: Acute Category: Medical Code(s): I21.3 - ST elevation (STEMI) myocardial infarction of unspecified site (2) Hyperlipidemia: Status: Chronic Qualifiers: Hyperlipidemia type: unspecified Qualified Code(s): E78.5 - Hyperlipidemia, unspecified Category: Medical Code(s): E78.5 - Hyperlipidemia, unspecified (3) Hypertension: Status: Chronic Qualifiers: Hypertension type: essential hypertension Qualified Code(s): I10 - Essential (primary) hypertension Category: Medical Code(s): I10 - Essential (primary) hypertension (4) CAD (coronary artery disease): Status: Acute Category: Medical Code(s): I25.10 - Atherosclerotic heart disease of [place] coronary artery without angina pectoris Plan Liu Barr is a 59-year-old male with a medical history significant for hypertension, hyperlipidemia who presented to the ED after waking up shortly after midnight with diaphoresis and generally not feeling well. He decided to come to the ED and was found to have a inferior STEMI on EKG. Dr. Alfaro with cardiology was immediately contacted and Technologies Division Chair was activated. He received a stent in first OM artery. #STEMI #CAD s/p MELLY 08/04/2024 #Hypertension ? No prior cardiac history including MIs, stents. ? Does have risk factors of hypertension, hyperlipidemia. No smoking history. ? Cardiology consulted, appreciate recommendations and efforts. ? Aspirin 81 mg, Brilinta 90 mg twice daily, atorvastatin 40 mg. ? Resumed home lisinopril 20 mg today. Plan to start carvedilol tomorrow as BP tolerates. ? Follow-up morning A1c, lipid panel, TSH. ? Continuous telemetry for the next 48 hours. ? Follow-up ECHO. DVT prophylaxis: Lovenox CODE STATUS: Full code
[2024-08-04] MEDS: LISINOPRIL 20MG TABLET 20 MG PO (17:27)
--- NOTE | 2024-08-04 19:13 | PC.NURSE ---
1900: Pt. doing well today. No chest pain, SOB, down graded from step down to med/surg. resting well. VSS, eating ok. Family at bedside. NO distress. on RA.
[2024-08-04] MEDS: ATORVASTATIN 40MG TABLET 40 MG PO (20:16)
[2024-08-05] VITALS (9 sets, daily range): BP systolic 115–124; BP diastolic 68–81; PULSE 70–91; RESP 16–18; TEMP 36.7–37; O2SAT 94–99; BMI 26.1
[2024-08-05 06:57] LABS: Basophils # 0.1 K/mm3 (0-0.2); Basophils % 0.6 % (0.1-2.0); Eosinophils # 0.2 K/mm3 (0.0-0.4); Eosinophils % 1.9 % (0.1-12.0); Hematocrit 48.9 % (42.0-52.0); Hemoglobin 16.5 g/dL (14.1-18.0); Lymphocytes # 1.5 K/mm3 (0.7-4.5); Lymphocytes % 17.2 % (10-50); Mean Corpuscular HGB Conc 33.8 g/dL (31.8-35.4); Mean Corpuscular Hemoglobin 30.2 pg (27.0-31.2); Mean Corpuscular Volume 89.6 fl (80-94); Mean Platelet Volume 8.5 fl (7.4-10.4); Monocytes # 0.8 K/mm3 (0.1-1.0); Monocytes % 9.8 % (1.7-9.3); Neutrophils % 70.6 % (37.0-80.0); Platelet Count 160 K/mm3 (142-424); Red Blood Count 5.46 M/mm3 (4.60-6.20); Red Cell Distribution Width 14.6 % (11.5-17.5); White Blood Count 8.4 K/mm3 (4.8-10.8)
[2024-08-05 06:59] LABS: Chloride 104 mmol/L (98-107); Potassium 3.7 mmoL/L (3.5-5.1); Sodium 138 mmol/L (136-145)
[2024-08-05 07:02] LABS: Anion Gap 8.7 mEq/L (5-15); Blood Urea Nitrogen 13 mg/dl (9-20); Carbon Dioxide 29 mmol/L (22.0-30.0); Cholesterol 164 mg/dl (140-200); Creatinine Clearance Estimated 77 mL/min (50-200); Estimated Glomerular Filt Rate 69 ml/min (>60); GFR (African American) 83 ML/MIN (>60); Triglycerides 154 mg/dl (30-150); VLDL Cholesterol 31 mg/dL (0-40)
[2024-08-05 07:03] LABS: Calcium 9.4 mg/dl (8.4-10.2); Chol/HDL Ratio 6.1 (1-3.5); Glucose 102 mg/dl (74-100); HDL Cholesterol 27 mg/dl (40-60)
[2024-08-05 07:14] LABS: Direct LDL Cholesterol 95.38 mg/dL (100-129)
[2024-08-05 07:34] LABS: Thyroid Stimulating Hormone 0.72 uIU/mL (0.465-4.68)
[2024-08-05 08:22] LABS: Hemoglobin A1C 5.3 % (4.0-6.0)
[2024-08-05] MEDS: LISINOPRIL 20MG TABLET 20 MG PO (08:39)
[2024-08-05] MEDS: ASPIRIN EC 81MG TABLET 81 MG PO (08:40)
[2024-08-05] MEDS: TICAGRELOR 90MG TABLET 90 MG PO ×2 (08:40→20:47)
--- NOTE | 2024-08-05 09:51 | P.PN_ITS ---
Subjective *Date: 08/05/24 *Time: 11:51 Interval history: No acute events overnight. Patient chest pain-free. No nausea or vomiting. Continue to monitor on telemetry. Stable on room air Medical Exam Vital signs and Labs for Last 24 Hours: Vital Signs Temp Pulse Pulse Resp BP Pulse Ox O2 Del Method 08/05/24 09:00 Room Air 08/05/24 08:00 90 08/05/24 08:00 Room Air 08/05/24 08:00 91 H 08/05/24 08:00 98.5 F 91 H 17 118/72 98 Room Air 08/05/24 07:00 Room Air 08/05/24 04:52 Room Air 08/05/24 04:00 80 08/05/24 04:00 98.2 F 81 16 124/79 97 Room Air 08/05/24 03:00 Room Air 08/05/24 00:38 Room Air 08/05/24 00:00 70 08/05/24 00:00 98.2 F 83 16 120/81 98 Room Air 08/04/24 22:42 Room Air 08/04/24 21:00 Room Air 08/04/24 20:00 100 H 08/04/24 20:00 Room Air 08/04/24 20:00 98.7 F 94 H 16 135/81 99 Room Air 08/04/24 19:00 Room Air 08/04/24 17:03 80 08/04/24 16:48 Room Air 08/04/24 16:00 98.3 F 95 H 18 131/82 99 Room Air 08/04/24 15:00 Room Air 08/04/24 14:36 Room Air 08/04/24 14:00 98.8 F 08/04/24 12:34 Room Air 08/04/24 12:00 100 H 08/04/24 12:00 98.8 F 08/04/24 10:53 Room Air Intake and Output 08/04/24 08/05/24 08/05/24 23:59 07:59 15:59 Intake Total 660 / 1380 180 / 720 540 / 720 Output Total 0 / 450 0 / 0 0 / 0 Balance 660 / 930 180 / 720 540 / 720 Intake: Intake, Oral Amount 660 / 1380 180 / 720 540 / 720 Intake, Oral Supplement Amount 0 / 0 Output: Output, Urine Amount 0 / 450 0 / 0 0 / 0 Other: Number of Voids 0 Number of Unmeasured Voids 0 1 0 Number of Bowel Movements 0 1 0 Weight 75.41 kg Patient Weight 08/05/24 23:59 Weight 75.41 kg Laboratory Results - last 24 hr 08/05/24 06:20: WBC 8.4, RBC 5.46, Hgb 16.5, Hct 48.9, MCV 89.6, MCH 30.2, MCHC 33.8, RDW 14.6, Plt Count 160 D, MPV 8.5, Neut % (Auto) 70.6, Lymph % (Auto) 17.2, [place] % (Auto) 9.8 H, Eos % (Auto) 1.9, Baso % (Auto) 0.6, Neut # (Auto) 6.0, Lymph # (Auto) 1.5, [place] # (Auto) 0.8, Eos # (Auto) 0.2, Baso # (Auto) 0.1, Sodium 138, Potassium 3.7, Chloride 104, Carbon Dioxide 29, Anion Gap 8.7, BUN 13, Creatinine 1.10, Estimated Creat Clear 77, Estimated GFR 69, Est GFR ( Amer) 83, Glucose 102 H, Hemoglobin A1c 5.3, Calcium 9.4, Triglycerides 154 H, Cholesterol 164, LDL Cholesterol Direct 95.38 L, VLDL Cholesterol 31, HDL Cholesterol 27 L, Cholesterol/HDL Ratio 6.1 H, TSH 0.72 I & O for Labs for Last 24 Hours: Intake & Output 08/02/24 08/03/24 08/04/24 08/05/24 23:59 23:59 23:59 23:59 Intake Total 1380 / 1380 720 / 720 Output Total 450 / 450 0 / 0 Balance 930 / 930 720 / 720 Weight 77.111 kg 75.41 kg Constitutional: Present no acute distress Neck: Present normal inspection Respiratory: Present normal respiratory effort; Absent rhonchi, wheezes or crackles Cardiac: Present Reg Rate and Rhythm GI: Present soft and normal bowel sounds; Absent distention or tenderness Extremities: Present normal inspection and full ROM Skin: Present intact; Absent erythema Neuro: Present Grossly Intact, alert, awake, oriented x 3 and moves all extremities Assessment and Plan *Assessment and plan (1) ST elevation (STEMI) myocardial infarction: Status: Acute Category: Medical Code(s): I21.3 - ST elevation (STEMI) myocardial infarction of unspecified site (2) Hyperlipidemia: Status: Chronic Qualifiers: Hyperlipidemia type: unspecified Qualified Code(s): E78.5 - Hyperlipidemia, unspecified Category: Medical Code(s): E78.5 - Hyperlipidemia, unspecified (3) Hypertension: Status: Chronic Qualifiers: Hypertension type: essential hypertension Qualified Code(s): I10 - Essential (primary) hypertension Category: Medical Code(s): I10 - Essential (primary) hypertension (4) CAD (coronary artery disease): Status: Acute Category: Medical Code(s): I25.10 - Atherosclerotic heart disease of [place] coronary artery without angina pectoris Plan Liu Barr is a 59-year-old male with a medical history significant for hypertension, hyperlipidemia who presented to the ED after waking up shortly a fter midnight with diaphoresis and generally not feeling well. He decided to come to the ED and was found to have a inferior STEMI on EKG. Dr. Alfaro with cardiology was immediately contacted and [employer] was activated. He received a stent in first OM artery. Doing well this morning. Continues to necessitate inpatient management with monitoring for at least 48 hours after heart cath. Problems addressed as follows: #STEMI #CAD s/p MELLY 08/04/2024 #Hypertension ? No prior cardiac history including MIs, stents. ? Cardiology consulted, appreciate recommendations and efforts. ? Aspirin 81 mg, Brilinta 90 mg twice daily, atorvastatin 40 mg. ? Resumed home lisinopril 20 mg today. Plan to start carvedilol tomorrow as BP tolerates. ? A1c normal at 5.3. Morning labs with kidney function of BUN 13, creatinine 1.1. LDL 95. TSH 0.72. Repeat CBC, CMP, magnesium ordered for the morning. ? Continuous telemetry for the next 48 hours. ? Follow-up ECHO. DVT prophylaxis: Lovenox CODE STATUS: Full code Cardiac diet
--- NOTE | 2024-08-05 10:13 | CA_ITS ---
APPROVED REPORT EXAM: Comprehensive 2D, Doppler, and color-flow Echocardiogram [employer] [place]: Ruby Ambriz CRT Ht: 5 ft 7 in Wt: 166lbs BSA: 1.87 BP: 131/82 mmHg Indications: NSTEMI, CAD, Hyperlipidemia, Hypertension/HDD, STENT 08/04/24 2D Dimensions LA Volume 37.10 mL LA Volume Index 19.40 mL/m2 (M/F) 16-34 M-Mode Dimensions RVDd 2.10 cm (0.9-2.6) LA Diam 2.83 cm (1.9-4.0) LVDd 5.13 cm (3.5-5.7) LVDs 3.77 cm (3.5-5.7) IVSd 0.85 cm (0.6-1.1) PWd 0.75 cm (0.6-1.1) EF (Teich) 51.60% FS 26.50% EDV (Teich) 125.50 mL ESV (Teich) 60.80 mL LV Diastology E Decel Time 87 (160-240 msec) E/A Ratio 0.85 MED A' 11.30 cm/s LAT A' 16.60 cm/s Aortic Valve AO Peak GR. 5.90 mmHg Mitral Valve MV A Velocity 79.0 (40-130 cm/s) E/A Ratio 0.85 Pulmonary Valve PV Peak Velocity 132.0 (50-150 cm/s) Tricuspid Valve TR P. Velocity 206.00 cm/s RAP Estimate 10.00 mmHg RVSP 27.00 mmHg Left Ventricle The left ventricle is normal size. Left ventricular systolic function is mildly decreased. There is increased LV wall thickness. There is moderate hypokinesis of the mid to distal inferior, inferolateral, and inferoseptal LV dillon. Grade 1 diastolic dysfunction is present. LVEF is 45%. Right Ventricle The right ventricle is normal size. The right ventricular systolic function is normal. Atria The left atrium size is normal. The right atrium size is normal. There is no Doppler evidence of interatrial shunt. Aortic Valve Aortic valve is mildly thickened. There is no aortic valvular stenosis. No aortic regurgitation is present. Mitral Valve The mitral valve is normal in structure. No evidence of mitral valve stenosis. Trace mitral regurgitation. Tricuspid Valve The tricuspid valve leaflets are thin and pliable. Trace tricuspid regurgitation. There is insufficient TR jet to estimate RVSP. Pulmonic Valve The pulmonary valve is normal in structure. Trace pulmonic regurgitation. Great Vessels The aortic root is normal in size. The ascending aorta is normal in size. IVC is normal in size and collapses >50% with inspiration. Other Information Study Quality: Fair Conclusion Mildly reduced LV systolic function (LVEF 45%). Moderate hypokinesis of the mid to distal inferior, inferolateral, inferoseptal LV dillon. No significant valvular stenosis or regurgitation. Electronically signed by : Bessie Gorman MD 08/06/2024 11:32:48
[2024-08-05] MEDS: CARVEDILOL 6.25MG TABLET 6.25 MG PO ×2 (11:26→20:47)
--- NOTE | 2024-08-05 12:50 | EXP.CARD.CON ---
History of Present Illness History of Present Illness Consult date: 08/05/24 Requesting physician: Mauro Mason Consult reason: known to you Chief complaint: palps Additional Medical History:: History of present illness: 59-year-old white male without prior known cardiovascular disease presented early in the morning yesterday with complaints of worsening severe palpitations occurring at rest with no modifying factors. He was found on workup to have STEMI and taken emergently to the [facility]. Patient received stenting of obtuse marginal artery. He has moderate persistent LAD and RCA disease left to medical therapy. LV function on heart cath was 55% but formal echo is pending. Patient reports she is feeling significantly better. He has had no arrhythmias on telemetry. Vitals are stable. He is tolerating medicines well. [facility] Disclaimer: The information contained in this section may have been updated after the patient was seen, as this information can be updated by other users. Surgical History S/P tonsillectomy Family History Other No significant family history Social History Smoking Status: Never smoker alcohol intake: never substance use type: denies use current occupational status: employed Travel in the last 8 weeks: None household members: family housing: house Review of Systems Constitutional Constitutional: Denies fatigue and Denies weakness Eyes Eyes: Denies loss of vision ENT Ears, Nose, Mouth, and Throat: Denies hearing loss and Denies vertigo *Cardiovascular Cardiovascular: Denies chest pain, Denies dyspnea and Denies syncope *Respiratory Respiratory: Denies cough and Denies dyspnea *Gastrointestinal Gastrointestinal: Denies change in stool character, Denies nausea and Denies vomiting *Genitourinary Genitourinary: Denies difficulty urinating *Musculoskeletal Musculoskeletal: Denies muscle weakness Integumentary/Breasts Skin/Breast: Denies changing lesions *Neurologic Neurologic: Denies loss of vision, Denies syncope, Denies vertigo and Denies weakness Endocrine Endocrine: Denies fatigue Exam Data for Last 24 hours Vital signs and Labs for Last 24 Hours: Temp Pulse Resp BP Pulse Ox O2 Del Method 98.5 F 91 H 17 118/72 98 Room Air 08/05/24 08:00 08/05/24 08:00 08/05/24 08:00 08/05/24 08:00 08/05/24 08:00 08/05/24 11:00 Laboratory Results - last 24 hr 08/05/24 06:20: WBC 8.4, RBC 5.46, Hgb 16.5, Hct 48.9, MCV 89.6, MCH 30.2, MCHC 33.8, RDW 14.6, Plt Count 160 D, MPV 8.5, Neut % (Auto) 70.6, Lymph % (Auto) 17.2, [place] % (Auto) 9.8 H, Eos % (Auto) 1.9, Baso % (Auto) 0.6, Neut # (Auto) 6.0, Lymph # (Auto) 1.5, [place] # (Auto) 0.8, Eos # (Auto) 0.2, Baso # (Auto) 0.1, Sodium 138, Potassium 3.7, Chloride 104, Carbon Dioxide 29, Anion Gap 8.7, BUN 13, Creatinine 1.10, Estimated Creat Clear 77, Estimated GFR 69, Est GFR ( Amer) 83, Glucose 102 H, Hemoglobin A1c 5.3, Calcium 9.4, Triglycerides 154 H, Cholesterol 164, LDL Cholesterol Direct 95.38 L, VLDL Cholesterol 31, HDL Cholesterol 27 L, Cholesterol/HDL Ratio 6.1 H, TSH 0.72 I & O for Last 24 hours: Intake & Output 08/02/24 08/03/24 08/04/24 08/05/24 23:59 23:59 23:59 23:59 Intake Total 1380 / 1380 720 / 720 Output Total 450 / 450 0 / 0 Balance 930 / 930 720 / 720 Weight 170 lb 166 lb 4 oz Constitutional Constitutional: no acute distress and cooperative *Routine HEENT Exam Eye: Present PERRL *Routine Respiratory Exam Respiratory: Present CTA bilaterally; Absent accessory muscle use, wheezes or crackles *Routine Cardiovascular Exam Cardiovascular: Present RRR, Normal S1 and Normal S2; Absent murmur, gallop or rubs Comments: right radial cath site normal on inspection and palpation *Routine Abdominal Exam Abdominal: Present soft; Absent tenderness *Routine Extremities Exam Extremities: Present pulses intact; Absent cyanosis or edema *Routine Skin Exam Skin: Present intact; Absent erythema or wounds *Routine Neurological Exam Neurological: Present alert and oriented X3 Routine Psychiatric Exam Psychiatric: Present cooperative Meds Home Medications and Allergies Home Medications ?Medication ?Instructions ?Recorded ?Confirmed ?Type amlodipine 5 mg tablet 5 mg PO DAILY 08/04/24 08/04/24 History atorvastatin 10 mg tablet 10 mg PO HS 08/04/24 08/04/24 History lisinopril 20 mg tablet 20 mg PO DAILY 08/04/24 08/04/24 History New Prescriptions to Start Prescriptions: Allergies Allergy/AdvReac Type Severity Reaction Status Date / Time No Known Allergies Allergy Verified 06/26/19 08:52 Assessment and Plan *Assessment and plan (1) CAD (coronary artery disease): Status: Acute Category: Medical Code(s): I25.10 - Atherosclerotic heart disease of [place] coronary artery without angina pectoris (2) ST elevation (STEMI) myocardial infarction: Status: Acute Category: Medical Code(s): I21.3 - ST elevation (STEMI) myocardial infarction of unspecified site (3) Hyperlipidemia: Status: Chronic Qualifiers: Hyperlipidemia type: unspecified Qualified Code(s): E78.5 - Hyperlipidemia, unspecified Category: Medical Code(s): E78.5 - Hyperlipidemia, unspecified (4) Hypertension: Status: Chronic Qualifiers: Hypertension type: essential hypertension Qualified Code(s): I10 - Essential (primary) hypertension Category: Medical Code(s): I10 - Essential (primary) hypertension Plan CAD s/p AW-STEMI 08/04 - new dx this admission - LHC: stent to OM-1. Mild-mod dz in LAD. Mod-Severe dz in nondominant RCA and PDA - left to med management - ECHO - pending - Cont DAPT, BB, statin, ARB - Pt will need cardiac rehab at discharge Htn - cont ARB/BB HLD - LDL 95, goal is <55 - prior GI upset with Lipitor but willing to try again - A1C 5.3 CV stable. Cont 48h obs for VT post STEMI. Likely ok for DC in am.
--- NOTE | 2024-08-05 17:40 | PC.NURSE ---
1740: Pt. had a good day. No chest pain or SOB , Vital signs stable. Up to chair and ambulates without difficulty. Possible discharge home tomorrow.
[2024-08-05] MEDS: ATORVASTATIN 40MG TABLET 40 MG PO (20:47)
[2024-08-06] VITALS: PULSE 73
[2024-08-06 04:00] VITALS: BP 111/70; PULSE 76; PULSE 79; RESP 17; TEMP 36.8; O2SAT 98; BMI 26.0
--- NOTE | 2024-08-06 05:03 | PC.NURSE ---
Vital signs stable, afebrile. No complaints of pain or discomfort. Drsg to right wrist clean, dry, intact. Bruising noted to right hand and forearm, no edema. Independent to the rest room.
[2024-08-06 07:06] LABS: Basophils # 0.1 K/mm3 (0-0.2); Basophils % 0.7 % (0.1-2.0); Eosinophils # 0.2 K/mm3 (0.0-0.4); Eosinophils % 2.6 % (0.1-12.0); Hemoglobin 14.9 g/dL (14.1-18.0); Lymphocytes # 1.7 K/mm3 (0.7-4.5); Lymphocytes % 18.5 % (10-50); Mean Corpuscular HGB Conc 32.4 g/dL (31.8-35.4); Mean Corpuscular Hemoglobin 28.2 pg (27.0-31.2); Mean Platelet Volume 8.1 fl (7.4-10.4); Monocytes # 0.9 K/mm3 (0.1-1.0); Monocytes % 9.4 % (1.7-9.3); Neutrophils # 6.4 K/mm3 (1.8-7.8); Neutrophils % 69.5 % (37.0-80.0); Platelet Count 222 K/mm3 (142-424); Red Blood Count 5.29 M/mm3 (4.60-6.20); Red Cell Distribution Width 14.5 % (11.5-17.5); White Blood Count 9.2 K/mm3 (4.8-10.8)
[2024-08-06 07:12] LABS: Albumin Level 4.1 g/dl (3.5-5.0); Chloride 103 mmol/L (98-107); Potassium 3.9 mmoL/L (3.5-5.1); Sodium 138 mmol/L (136-145)
[2024-08-06 07:15] LABS: Alanine Aminotransferase 46 U/L (12-78); Albumin/Globulin Ratio 1.3 (1.1-1.8); Alkaline Phosphatase 79 U/L (38-126); Anion Gap 9.9 mEq/L (5-15); Aspartate Amino Transferase 99 U/L (17-59); Bilirubin,Total 1.5 mg/dl (0.2-1.3); Blood Urea Nitrogen 19 mg/dl (9-20); Calcium 9.4 mg/dl (8.4-10.2); Carbon Dioxide 29 mmol/L (22.0-30.0); Creatinine Clearance Estimated 71 mL/min (50-200); Estimated Glomerular Filt Rate 62 ml/min (>60); GFR (African American) 75 ML/MIN (>60); Globulin 3.1 g/dL (1.3-3.2); Glucose 97 mg/dl (74-100); Magnesium 2.1 mg/dl (1.6-2.3); Total Protein,Serum 7.2 g/dl (6.3-8.2)
[2024-08-06 08:00] VITALS: BP 118/82; PULSE 77; PULSE 85; RESP 19; TEMP 36.9; O2SAT 99
[2024-08-06] MEDS: LISINOPRIL 20MG TABLET 20 MG PO (08:39)
[2024-08-06] MEDS: TICAGRELOR 90MG TABLET 90 MG PO (08:40)
[2024-08-06] MEDS: CARVEDILOL 6.25MG TABLET 6.25 MG PO (08:40)
[2024-08-06] MEDS: ASPIRIN EC 81MG TABLET 81 MG PO (08:40)
--- NOTE | 2024-08-06 10:53 | P.PN_ITS ---
Subjective Subjective Date: 08/06/24 Time: 10:53 Interval history: No events overnight. Patient denies chest pain shortness of breath. No VT. He feels ready for discharge. Exam Data for Last 24 hours Vital signs and Labs for Last 24 Hours: Temp Pulse Resp BP Pulse Ox O2 Del Method 98.5 F 77 19 118/82 99 Room Air 08/06/24 08:00 08/06/24 08:00 08/06/24 08:00 08/06/24 08:00 08/06/24 08:00 08/06/24 08:59 Laboratory Results - last 24 hr 08/06/24 05:47: WBC 9.2, RBC 5.29, Hgb 14.9, Hct 46.0, MCV 87.0, MCH 28.2, MCHC 32.4, RDW 14.5, Plt Count 222 D, MPV 8.1, Neut % (Auto) 69.5, Lymph % (Auto) 18.5, [place] % (Auto) 9.4 H, Eos % (Auto) 2.6, Baso % (Auto) 0.7, Neut # (Auto) 6.4, Lymph # (Auto) 1.7, [place] # (Auto) 0.9, Eos # (Auto) 0.2, Baso # (Auto) 0.1, Sodium 138, Potassium 3.9, Chloride 103, Carbon Dioxide 29, Anion Gap 9.9, BUN 19 D, Creatinine 1.20, Estimated Creat Clear 71, Estimated GFR 62, Est GFR ( Amer) 75, Glucose 97, Calcium 9.4, Magnesium 2.1, Total Bilirubin 1.5 H , AST 99 H D, ALT 46 D, Alkaline Phosphatase 79, Total Protein 7.2, Albumin 4.1, Globulin 3.1, Albumin/Globulin Ratio 1.3 I & O for Last 24 hours: Intake & Output 08/03/24 08/04/24 08/05/24 08/06/24 23:59 23:59 23:59 23:59 Intake Total 1380 / 1380 1470 / 1710 960 / 960 Output Total 450 / 450 0 / 0 0 / 0 Balance 930 / 930 1470 / 1710 960 / 960 Weight 170 lb 166 lb 4 oz 166 lb Constitutional Constitutional: no acute distress and cooperative *Routine HEENT Exam Eye: Present PERRL *Routine Respiratory Exam Respiratory: Present CTA bilaterally; Absent accessory muscle use, wheezes or crackles *Routine Cardiovascular Exam Cardiovascular: Present RRR, Normal S1 and Normal S2; Absent murmur, gallop or rubs Comments: right radial cath site normal on inspection and palpation *Routine Abdominal Exam Abdominal: Present soft; Absent tenderness *Routine Extremities Exam Extremities: Present pulses intact; Absent cyanosis or edema *Routine Skin Exam Skin: Present intact; Absent erythema or wounds *Routine Neurological Exam Neurological: Present alert and oriented X3 Routine Psychiatric Exam Psychiatric: Present cooperative Progress Note: A&P Assessment and plan (1) CAD (coronary artery disease): Status: Acute (2) ST elevation (STEMI) myocardial infarction: Status: Acute (3) Hyperlipidemia: Status: Chronic (4) Hypertension: Status: Chronic (5) HFrEF (heart failure with reduced ejection fraction): Status: Acute Assessment and Plan Assessment and Plan for All Diagnoses:: CAD s/p AW-STEMI 08/04 - new dx this admission - LH: stent to OM-1. Mild-mod dz in LAD. Mod-Severe dz in nondominant RCA and PDA - left to med management - ECHO - pending - Cont DAPT, BB, statin, ARB - Pt will need cardiac rehab at discharge HFrEF - NYHA = 1 - mildly reduced EF 45% post stemi - home with COLLEEN/BB - repeat ECHO 1-3 mo Htn - cont ARB/BB HLD - LDL 95, goal is <55 - prior GI upset with Lipitor but willing to try again - A1C 5.3 CV stable for DC home. He needs f/u in our office 1 week post discharge. CV DC Med List: Aspirin 81 mg 1 p.o. daily Brilinta 90 mg 1 p.o. twice daily Lipitor 40 mg 1 p.o. nightly Lisinopril 20 mg 1 p.o. daily Carvedilol 6.25 mg 1 p.o. twice daily
[2024-08-06 12:00] VITALS: BP 131/79; PULSE 77; PULSE 80; RESP 19; TEMP 36.6; O2SAT 97
--- NOTE | 2024-08-06 12:13 | P.DS_ITS ---
General Admission date:: 08/04/24 HPI HPI HPI: Liu Barr is a 59-year-old male with a medical history significant for hypertension, hyperlipidemia who presented to the ED after waking up shortly after midnight with diaphoresis and generally not feeling well. He decided to come to the ED and was found to have a inferior STEMI on EKG. Dr. Alfaro with cardiology was immediately contacted and [employer] was activated. Patient had no chest pain on arrival and comfortable. Hospital Course Hospital Course Hospital Course: Liu Barr is a 59-year-old male with a medical history significant for hypertension, hyperlipidemia who presented to the ED after waking up shortly after midnight with diaphoresis and generally not feeling well. He decided to come to the ED and was found to have a inferior STEMI on EKG. Dr. Alfaro with cardiology was immediately contacted and [employer] was activated. He received a stent in first OM artery. Doing well this morning. #STEMI #CAD s/p MELLY 08/04/2024 #Hypertension ? No prior cardiac history including MIs, stents. ? Cardiology consulted, received stent in the first OM artery. ? A1c normal at 5.3. TSH normal. - ECHO showed LVEF 45%. ? Started Aspirin 81 mg, Brilinta 90 mg twice daily, atorvastatin 40 mg. ? Resumed home lisinopril 20 mg today. - Continue home carvedilol, amlodpine. - Stale for discharge today. Will follow-up with cardiology within 1 week. Exam Data for Last 24 hours Vital signs and Labs for Last 24 Hours: Temp Pulse Resp BP Pulse Ox O2 Del Method 98.5 F 77 19 118/82 99 Room Air 08/06/24 08:00 08/06/24 08:00 08/06/24 08:00 08/06/24 08:00 08/06/24 08:00 08/06/24 11:00 Laboratory Results - last 24 hr 08/06/24 05:47: WBC 9.2, RBC 5.29, Hgb 14.9, Hct 46.0, MCV 87.0, MCH 28.2, MCHC 32.4, RDW 14.5, Plt Count 222 D, MPV 8.1, Neut % (Auto) 69.5, Lymph % (Auto) 18.5, [place] % (Auto) 9.4 H, Eos % (Auto) 2.6, Baso % (Auto) 0.7, Neut # (Auto) 6.4, Lymph # (Auto) 1.7, [place] # (Auto) 0.9, Eos # (Auto) 0.2, Baso # (Auto) 0.1, Sodium 138, Potassium 3.9, Chloride 103, Carbon Dioxide 29, Anion Gap 9.9, BUN 19 D, Creatinine 1.20, Estimated Creat Clear 71, Estimated GFR 62, Est GFR ( Amer) 75, Glucose 97, Calcium 9.4, Magnesium 2.1, Total Bilirubin 1.5 H , AST 99 H D, ALT 46 D, Alkaline Phosphatase 79, Total Protein 7.2, Albumin 4.1, Globulin 3.1, Albumin/Globulin Ratio 1.3 I & O for Last 24 hours: Intake & Output 08/03/24 08/04/24 08/05/24 08/06/24 23:59 23:59 23:59 23:59 Intake Total 1380 / 1380 1470 / 1710 960 / 960 Output Total 450 / 450 0 / 0 0 / 0 Balance 930 / 930 1470 / 1710 960 / 960 Weight 77.111 kg 75.41 kg 75.296 kg Constitutional Constitutional: no acute distress *Routine HEENT Exam Head: Present normocephalic Eye: Present EOMI and PERRL ENT: Present mucous membranes moist *Routine Neck Exam Neck: Present supple; Absent lymphadenopathy *Routine Respiratory Exam Respiratory: Present CTA bilaterally *Routine Cardiovascular Exam Cardiovascular: Present RRR *Routine Abdominal Exam Abdominal: Present soft and normoactive bowel sounds; Absent tenderness *Routine Extremities Exam Extremities: Absent cyanosis, clubbing or edema *Routine Skin Exam Skin: Present warm; Absent rash *Routine Neurological Exam Neurological: Present alert and oriented X3 Results Data Completed and Pending Labs on day of discharge: Labs from last 24 hours 08/06/24 05:47 WBC 9.2 RBC 5.29 Hgb 14.9 Hct 46.0 MCV 87.0 MCH 28.2 MCHC 32.4 RDW 14.5 Plt Count 222 D MPV 8.1 Neut % (Auto) 69.5 Lymph % (Auto) 18.5 [place] % (Auto) 9.4 H Eos % (Auto) 2.6 Baso % (Auto) 0.7 Neut # (Auto) 6.4 Lymph # (Auto) 1.7 [place] # (Auto) 0.9 Eos # (Auto) 0.2 Baso # (Auto) 0.1 Sodium 138 Potassium 3.9 Chloride 103 Carbon Dioxide 29 Anion Gap 9.9 BUN 19 D Creatinine 1.20 Estimated Creat Clear 71 Estimated GFR 62 Est GFR ( Amer) 75 Glucose 97 Calcium 9.4 Magnesium 2.1 Total Bilirubin 1.5 H AST 99 H D ALT 46 D Alkaline Phosphatase 79 Total Protein 7.2 Albumin 4.1 Globulin 3.1 Albumin/Globulin Ratio 1.3 DS: Diagnosis Discharge Diagnosis (1) CAD (coronary artery disease): Status: Acute Code(s): I25.10 - Atherosclerotic heart disease of resighini coronary artery without angina pectoris (2) ST elevation (STEMI) myocardial infarction: Status: Acute Code(s): I21.3 - ST elevation (STEMI) myocardial infarction of unspecified site (3) Hyperlipidemia: Status: Chronic Code(s): E78.5 - Hyperlipidemia, unspecified Qualifiers: Hyperlipidemia type: unspecified Qualified Code(s): E78.5 - Hyperlipidemia, unspecified (4) Hypertension: Status: Chronic Code(s): I10 - Essential (primary) hypertension Qualifiers: Hypertension type: essential hypertension Qualified Code(s): I10 - Essential (primary) hypertension (5) HFrEF (heart failure with reduced ejection fraction): Status: Acute Code(s): I50.20 - Unspecified systolic (congestive) heart failure Meds Home Medications and Allergies Home Medications ?Medication ?Instructions ?Recorded ?Confirmed ?Type nitroglycerin 0.4 mg sublingual 0.4 mg sublingual Q5MINP PRN Chest 08/06/24 08/12/24 Rx tablet (Nitrostat) Pain #30 tabs amlodipine 5 mg tablet 5 mg PO DAILY #30 tabs 08/12/24 08/12/24 Rx aspirin 81 mg tablet,delayed 81 mg PO DAILY #30 tabs 08/12/24 08/12/24 Rx release atorvastatin 40 mg tablet 40 mg PO HS #30 tabs 08/12/24 08/12/24 Rx carvedilol 6.25 mg tablet 6.25 mg PO BID #60 tabs 08/12/24 08/12/24 Rx lisinopril 20 mg tablet 20 mg PO DAILY #30 tabs 08/12/24 08/12/24 Rx ticagrelor 90 mg tablet (Brilinta) 90 mg PO BID #60 tabs 08/12/24 08/12/24 Rx New Prescriptions to Start Prescriptions: nitroglycerin [Nitrostat] Anurag Bennett Allergies Allergy/AdvReac Type Severity Reaction Status Date / Time No Known Allergies Allergy Verified 08/12/24 10:14 Discharge Plan Disposition Patient Disposition: Home, Self-Care Condition: Fair Discharge Order Discharge Orders: Discharge Order (Routine); Ordered 08/06/24 Ordered By: Anurag Bennett Follow up Plan Follow up with: Ivania (ED),ESTIVEN Lambert [Nurse Practitioner] - 08/13/24 8:30 am Vlad Alfaro MD [Staff Physician] - 08/12/24 10:30 am (Within 1 week) Prescriptions/Medication Reconciliation: New nitroglycerin [Nitrostat] 0.4 mg Tablet, Sublingual 0.4 mg sublingual Q5MINP PRN (Reason: Chest Pain) Qty: 30 0RF Continued Brilinta 90 mg tablet 90 mg PO BID Qty: 60 11RF aspirin 81 mg tablet,delayed release (DR/EC) 81 mg PO DAILY Qty: 30 11RF amlodipine 5 mg tablet 5 mg PO DAILY Qty: 30 5RF atorvastatin 40 mg tablet 40 mg PO HS Qty: 30 5RF carvedilol 6.25 mg tablet 6.25 mg PO BID Qty: 60 5RF lisinopril 20 mg tablet 20 mg PO DAILY Qty: 30 5RF Discontinued atorvastatin 10 mg tablet 10 mg PO HS Patient Comments: TAKE 1 TABLET BY MOUTH DAILY AT BEDTIME Problem Reconciliation Problems Reviewed?: Yes Patient Discharge Instructions ACTIVITY: Continue current activity DIET: continue same diet Patient Instructions: DI for Heart Attack, DI for Cardiac Catheterization, DI for Surgical Site Infection Print Language: [place]ian Providers Primary Care Provider: Petra Redd Admit Provider: Mauro Mason Attending Provider: Mauro Mason
--- NOTE | 2024-08-10 16:51 | CARE MANAGER ---
Attempted to call patient to discuss recent discharge. Unable to reach via phone, call attempted X 2 with no VM available.
== END 2024-08-06 14:10 | disposition home or self-care (01) | DRG 322 ==
LOC: ER 03:29 → 2ND 03:58
PROVIDERS: Internal Medicine; Student in an Organized Health Care Education/Training Program; Admitting Provider Internal Medicine Adolescent Medicine; Emergency Provider Emergency Medicine; PCP Nurse Practitioner; Visit Provider Internal Medicine Adolescent Medicine
PROC: 027034Z Dilation of Coronary Artery, One Artery with Drug-eluting Intraluminal Device, Percutaneous Approach (ICD-10-PCS; principal; 2024-08-04 03:40)
DX: I21.19 ST elevation (STEMI) myocardial infarction involving other coronary artery of inferior wall (principal); I50.20 Unspecified systolic (congestive) heart failure; E78.5 Hyperlipidemia, unspecified; I11.0 Hypertensive heart disease with heart failure; I25.10 Atherosclerotic heart disease of native coronary artery without angina pectoris
CPT/HCPCS: 93595; C9600; 36415; 71045; 80048; 80053; 80061; 83036; 83735; 84443; 84484; 85025; 85347; 85610; 85730; 92610; 92928; 93005; 93306; 93458; 99152; 99153; 99291; C1725; C1769; C1874; J1200; J1644; J2250; J3010; Q9967

== ENCOUNTER 2024-08-12 09:31 | Outpatient (CLI) | payer OTHER, SELFPAY ==
[2024-08-12 10:02] LABS: Basophils # 0.1 K/mm3 (0-0.2); Basophils % 0.7 % (0.1-2.0); Eosinophils # 0.3 K/mm3 (0.0-0.4); Eosinophils % 3.9 % (0.1-12.0); Hematocrit 38.6 % (42.0-52.0); Hemoglobin 15.2 g/dL (14.1-18.0); Lymphocytes # 1.2 K/mm3 (0.7-4.5); Lymphocytes % 15.3 % (10-50); Mean Corpuscular HGB Conc 39.5 g/dL (31.8-35.4); Mean Corpuscular Hemoglobin 33.9 pg (27.0-31.2); Mean Corpuscular Volume 85.9 fl (80-94); Mean Platelet Volume 7.2 fl (7.4-10.4); Monocytes # 0.7 K/mm3 (0.1-1.0); Monocytes % 8.2 % (1.7-9.3); Neutrophils # 5.8 K/mm3 (1.8-7.8); Neutrophils % 71.9 % (37.0-80.0); Platelet Count 261 K/mm3 (142-424); Red Blood Count 4.49 M/mm3 (4.60-6.20); Red Cell Distribution Width 14.2 % (11.5-17.5); White Blood Count 8.1 K/mm3 (4.8-10.8)
[2024-08-12 10:30] LABS: Chloride 103 mmol/L (98-107); Potassium 4.2 mmoL/L (3.5-5.1); Sodium 139 mmol/L (136-145)
[2024-08-12 10:33] LABS: Anion Gap 12.2 mEq/L (5-15); Blood Urea Nitrogen 15 mg/dl (9-20); Calcium 9.9 mg/dl (8.4-10.2); Carbon Dioxide 28 mmol/L (22.0-30.0); Estimated Glomerular Filt Rate 62 ml/min (>60); GFR (African American) 75 ML/MIN (>60); Glucose 112 mg/dl (74-100)
== END 2024-08-12 23:59 | disposition home or self-care (01) ==
LOC: LAB 09:33
PROVIDERS: PCP Nurse Practitioner; Visit Provider Internal Medicine
DX: I21.3 ST elevation (STEMI) myocardial infarction of unspecified site (principal)
CPT/HCPCS: 36415; 80048; 85025

== ENCOUNTER 2024-09-18 12:36 | Outpatient (CLI) | payer OTHER, SELFPAY ==
--- NOTE | 2024-09-18 12:43 | CA_ITS ---
FINAL REPORT TECHNIQUE: Color Doppler, duplex Doppler and compression sonography of the right lower extremity venous system was performed. CLINICAL HISTORY: HTN, HLD, currently takes blood thinners due to recent cardiac stenting(08/04). He injured his right knee 1 week prior to heart cath by stepping off a tractor and bending it backwards the wrong way. COMPARISON: None FINDINGS: There is no evidence of deep venous thrombosis from the level of the groin to the calf. The veins are patent and compressible. IMPRESSION: No evidence of deep venous thrombosis right lower extremity. Reviewed, Interpreted and Dictated by Donald Lee III, MD Transcribed by Brenda Laughlin Authenticated and . [facility]
== END 2024-09-18 23:59 | disposition home or self-care (01) ==
LOC: RT 12:37
PROVIDERS: PCP Nurse Practitioner; Visit Provider Nurse Practitioner
DX: M79.604 Pain in right leg (principal)
CPT/HCPCS: 93971

== ENCOUNTER 2024-10-12 10:14 | Outpatient (CLI) | payer OTHER, SELFPAY ==
--- NOTE | 2024-10-12 10:17 | US_ITS ---
FINAL REPORT TECHNIQUE: Ultrasound images of the testicles were obtained bilaterally. Color Doppler images were obtained. CLINICAL HISTORY: TESTICULAR PAIN COMPARISON: None FINDINGS: The right testicle is 4.6 cm in length. The left testicle is 4.6 cm in length. Arterial flow is identified bilaterally. No intratesticular masses are identified. The right epididymis is enlarged which may represent epididymitis. There is a small right hydrocele. IMPRESSION: Enlarged right epididymis may represent epididymitis. Small right hydrocele. Reviewed, Interpreted and Dictated by Donald Lee III, MD Transcribed by Tatyana Cunningham Authenticated and [facility]
== END 2024-10-12 23:59 | disposition home or self-care (01) ==
LOC: RAD 10:15
PROVIDERS: PCP Nurse Practitioner; Visit Provider Nurse Practitioner
DX: N50.819 Testicular pain, unspecified (principal)
CPT/HCPCS: 76870

== ENCOUNTER 2024-11-24 08:39 | Outpatient (CLI) | payer OTHER, SELFPAY ==
--- NOTE | 2024-11-24 08:41 | CA_ITS ---
APPROVED REPORT EXAM: Limited 2D and color flow Echocardiogram Hand Drawer In: Ruby Ambriz CRT Ht: 5 ft 7 in Wt: 166lbs BSA: 1.87 BP: 142/77 mmHg Indications: ef check, NSTEMI, CAD, STENT 08/04/24. ECHO 08/05/24 EF 45%, HTN, HLD M-Mode Dimensions RVDd 2.88 cm (0.9-2.6) LA Diam 4.13 cm (1.9-4.0) LVDd 4.45 cm (3.5-5.7) LVDs 3.16 cm (3.5-5.7) IVSd 1.13 cm (0.6-1.1) PWd 0.63 cm (0.6-1.1) EF (Teich) 55.90% FS 29.00% EDV (Teich) 90.10 mL ESV (Teich) 39.70 mL Other Information Study Quality: Fair Conclusion This is a limited TTE to evaluate for LV systolic function and LVEF. Limited windows are obtained. The left ventricle is normal in size. There is increased LV wall thickness. There is low normal global LV systolic function. No regional wall motion abnormalities are noted. LVEF is 50%. Electronically signed by : Bessie Gorman MD 11/26/2024 11:48:50
== END 2024-11-24 23:59 | disposition home or self-care (01) ==
LOC: RT 08:40
PROVIDERS: PCP Nurse Practitioner; Visit Provider Physician Assistant
DX: R94.31 Abnormal electrocardiogram [ECG] [EKG] (principal); I11.0 Hypertensive heart disease with heart failure; I25.10 Atherosclerotic heart disease of native coronary artery without angina pectoris; I50.20 Unspecified systolic (congestive) heart failure
CPT/HCPCS: 93308

== ENCOUNTER 2024-11-25 07:22 | Outpatient (CLI) | payer OTHER, SELFPAY ==
[2024-11-25 07:39] LABS: Basophils % 0.4 % (0.1-2.0); Eosinophils # 0.4 K/mm3 (0.0-0.4); Eosinophils % 3.7 % (0.1-12.0); Hematocrit 46.3 % (42.0-52.0); Hemoglobin 15.4 g/dL (14.1-18.0); Lymphocytes # 1.6 K/mm3 (0.7-4.5); Lymphocytes % 16.5 % (10-50); Mean Corpuscular HGB Conc 33.3 g/dL (31.8-35.4); Mean Corpuscular Hemoglobin 28.4 pg (27.0-31.2); Mean Corpuscular Volume 85.3 fl (80-94); Monocytes # 1.1 K/mm3 (0.1-1.0); Monocytes % 11.1 % (1.7-9.3); Neutrophils # 6.8 K/mm3 (1.8-7.8); Neutrophils % 68.1 % (37.0-80.0); Platelet Count 198 K/mm3 (142-424); Red Blood Count 5.43 M/mm3 (4.60-6.20); Red Cell Distribution Width 13.3 % (11.5-17.5)
[2024-11-25 09:13] LABS: Albumin Level 4.6 g/dl (3.5-5.0); Chloride 105 mmol/L (98-107); Sodium 138 mmol/L (136-145)
[2024-11-25 09:14] LABS: Potassium 3.9 mmoL/L (3.5-5.1)
[2024-11-25 09:16] LABS: Alanine Aminotransferase 26 U/L (12-78); Anion Gap 10.9 mEq/L (5-15); Aspartate Amino Transferase 33 U/L (17-59); Bilirubin,Unconjugated 0.9 mg/dL (0.0-1.1); Blood Urea Nitrogen 16 mg/dl (9-20); Carbon Dioxide 26 mmol/L (22.0-30.0); Estimated Glomerular Filt Rate 69 ml/min (>60); GFR (African American) 83 ML/MIN (>60); Total Protein,Serum 7.3 g/dl (6.3-8.2)
[2024-11-25 09:17] LABS: Alkaline Phosphatase 94 U/L (38-126); Bilirubin,Direct 0.2 mg/dl (0.0-0.4); Bilirubin,Indirect 0.9 mg/dL (0.0-0.9); Bilirubin,Total 1.1 mg/dl (0.2-1.3); Calcium 9.6 mg/dl (8.4-10.2); Chol/HDL Ratio 4.2 (1-3.5); Cholesterol 114 mg/dl (140-200); Glucose 99 mg/dl (74-100); HDL Cholesterol 27 mg/dl (40-60); Triglycerides 91 mg/dl (30-150); VLDL Cholesterol 18 mg/dL (0-40)
[2024-11-25 09:28] LABS: Direct LDL Cholesterol 65.18 mg/dL (100-129)
[2024-11-25 09:37] LABS: Free T4 (Free Thyroxine) 1.27 ng/dl (0.78-2.19)
[2024-11-25 09:48] LABS: Thyroid Stimulating Hormone 1.21 uIU/mL (0.465-4.68)
== END 2024-11-25 23:59 | disposition home or self-care (01) ==
LOC: LAB 07:22
PROVIDERS: PCP Nurse Practitioner; Visit Provider Physician Assistant
DX: R94.31 Abnormal electrocardiogram [ECG] [EKG] (principal); I50.20 Unspecified systolic (congestive) heart failure; I25.10 Atherosclerotic heart disease of native coronary artery without angina pectoris; E78.5 Hyperlipidemia, unspecified; I10 Essential (primary) hypertension
CPT/HCPCS: 36415; 80048; 80061; 80076; 83735; 84439; 84443; 85025

== ENCOUNTER 2025-06-07 08:14 | Outpatient (CLI) | payer OTHER, SELFPAY ==
[2025-06-07 08:39] LABS: Hematocrit 45.4 % (42.0-52.0); Hemoglobin 15.0 g/dL (14.1-18.0); Immature Granulocytes % 0.2 %; Mean Corpuscular HGB Conc 33.0 g/dL (31.8-35.4); Mean Corpuscular Hemoglobin 28.0 pg (27.0-31.2); Mean Corpuscular Volume 84.9 fl (80-94); Nucleated Red Blood Cells % 0 %; Platelet Count 183 K/mm3 (142-424); Red Blood Count 5.35 M/mm3 (4.60-6.20); Red Cell Distribution Width-SD 40.6 fL; White Blood Count 6.2 K/mm3 (4.8-10.8)
[2025-06-07 08:54] LABS: Albumin Level 3.6 g/dl (3.5-5.0)
[2025-06-07 08:55] LABS: Chloride 103 mmol/L (98-107); Potassium 4.0 mmoL/L (3.5-5.1); Sodium 137 mmol/L (136-145)
[2025-06-07 08:57] LABS: Alanine Aminotransferase 25 U/L (12-78); Anion Gap 8.0 mEq/L (5-15); Aspartate Amino Transferase 29 U/L (17-59); Bilirubin,Unconjugated 1.0 mg/dL (0.0-1.1); Blood Urea Nitrogen 13 mg/dl (9-20); Carbon Dioxide 30 mmol/L (22.0-30.0); Creatinine,Serum 1.00 mg/dl (0.66-1.25); Estimated Glomerular Filt Rate 76 ml/min (>60); GFR (African American) 92 ML/MIN (>60)
[2025-06-07 08:58] LABS: Alkaline Phosphatase 91 U/L (38-126); Bilirubin,Direct 0.1 mg/dl (0.0-0.4); Bilirubin,Indirect 0.9 mg/dL (0.0-0.9); Bilirubin,Total 1.0 mg/dl (0.2-1.3); Calcium 9.6 mg/dl (8.4-10.2); Cholesterol 117 mg/dl (140-200); Glucose 110 mg/dl (74-100); HDL Cholesterol 32 mg/dl (40-60); Magnesium 2.2 mg/dl (1.6-2.3); Total Protein,Serum 7.3 g/dl (6.3-8.2); Triglycerides 97 mg/dl (30-150)
[2025-06-07 09:40] LABS: Free T4 (Free Thyroxine) 1.30 ng/dl (0.78-2.19)
[2025-06-07 14:39] LABS: Thyroid Stimulating Hormone 0.91 uIU/mL (0.465-4.68)
== END 2025-06-07 23:59 | disposition home or self-care (01) ==
LOC: LAB 08:15
PROVIDERS: PCP Nurse Practitioner; Visit Provider Physician Assistant
DX: I25.10 Atherosclerotic heart disease of native coronary artery without angina pectoris (principal); I10 Essential (primary) hypertension
CPT/HCPCS: 36415; 80048; 80061; 80076; 83735; 84439; 84443; 85025